=== PATIENT | male | born 1945 | race Caucasian/White ===

== ENCOUNTER → 2017-04-25 | Outpatient (CLI) | payer MEDICARE, BC ==
--- NOTE | 2017-04-25 18:50 | PCVCIMAG ---
APPROVED REPORT Study performed: 04/25/2017 13:51:42 EXAM: Comprehensive 2D, Doppler, and color-flow Echocardiogram Status: routine Other Information Study Quality: Adequate Indications Dyspnea CAD Cardiomyopathy 2D Dimensions LVEF(%): 64.60 (>50%) IVSd: 15.72 (7-11mm) LVDd: 46.74 mm PWd: 13.65 (7-11mm) LVDs: 30.27 (25-40mm) Left Atrium: 43.15 (27-40mm) Aortic Root: 32.32 mm LV Single Plane 4CH: 55.81 % LV Single Plane 2CH: 61.02 %Sewell's LVEF: 58.42 % Biplane EF: 57.9 % Volumes Left Atrial Volume (Systole) Single Plane 4CH: 56.56 mLSingle Plane 2CH: 57.70 mL LA ESV Index: 29.00 mL/m2 Aortic Valve AoV Peak Cj.: 1.47 m/s AO Peak Gr.: 8.63 mmHgLVOT Max P.14 mmHg LVOT Max V: 1.13 m/s Mitral Valve E/A Ratio: 1.1 MV Decel. Time: 300.67 ms MV E Max Cj.: 0.61 m/s MV A Cj.: 0.54 m/s IVRT: 107.27 ms TDI E/Lateral E': 10.30E/Medial E': 11.30 Pulmonary Valve PV Peak Cj.: 1.00 m/sPV Peak Gr.: 4.03 mmHg Pulmonary Vein P Vein S: 0.32 m/sP Vein A: 0.30 m/s P Vein D: 0.41 m/sP Vein A Dur.: 107.3 msec P Vein S/D Ratio: 0.78 Tricuspid Valve TR Peak Cj.: 2.60 m/s TR Peak Gr.: 27.02 mmHg Left Ventricle The left ventricle is normal size. There is normal LV segmental wall motion. Moderate concentric left ventricular hypertrophy. Left ventricular systolic function is normal. LVEF is 55%. Grade I - abnormal relaxation pattern. Right Ventricle The right ventricle is normal size. The right ventricular systolic function is normal. Atria Left atrium is mildly dilated. Right atrium is mildly dilated. Aortic Valve The aortic valve is normal in structure. No aortic regurgitation is present. There is no aortic valvular stenosis. Mitral Valve The mitral valve is normal in structure. There is no mitral valve regurgitation noted. No evidence of mitral valve stenosis. Tricuspid Valve The tricuspid valve is normal in structure. Mild tricuspid regurgitation with PAP of 34 mmHg. Pulmonic Valve The pulmonary valve is normal in structure. There is mild-moderate pulmonic valvular regurgitation. Great Vessels The aortic root is normal in size. IVC is normal in size and collapses with >50% inspiration Pericardium There is no pericardial effusion. <Conclusion> The left ventricle is normal size. Moderate concentric left ventricular hypertrophy. LVEF is 55%. The right ventricle is normal size. Left atrium is mildly dilated. The aortic valve is normal in structure. The mitral valve is normal in structure. There is no mitral valve regurgitation noted. There is no pericardial effusion. There is no pericardial effusion.
== END | disposition home or self-care (01) ==
LOC: PCVCIMAG 13:58
PROVIDERS: ATTEND Internal Medicine Cardiovascular Disease
DX: I07.1 Rheumatic tricuspid insufficiency (principal); I37.1 Nonrheumatic pulmonary valve insufficiency; I25.119 Atherosclerotic heart disease of native coronary artery with unspecified angina pectoris; I25.5 Ischemic cardiomyopathy; E78.5 Hyperlipidemia, unspecified; I45.10 Unspecified right bundle-branch block; K21.9 Gastro-esophageal reflux disease without esophagitis; R60.9 Edema, unspecified; I10 Essential (primary) hypertension; Z95.1 Presence of aortocoronary bypass graft; Z79.82 Long term (current) use of aspirin; Z79.84 Long term (current) use of oral hypoglycemic drugs; Z79.899 Other long term (current) drug therapy; Z87.891 Personal history of nicotine dependence; Z88.1 Allergy status to other antibiotic agents; Z88.8 Allergy status to other drugs, medicaments and biological substances
CPT/HCPCS: 80061; 93005; 93306; G0463

== ENCOUNTER → 2017-07-05 | Outpatient (CLI) | payer MEDICARE, BC | END | disposition home or self-care (01) | LOC: PCVCCLINIC 14:31 | PROVIDERS: ATTEND Internal Medicine Cardiovascular Disease | DX: I25.10 Atherosclerotic heart disease of native coronary artery without angina pectoris (principal); I45.10 Unspecified right bundle-branch block; I10 Essential (primary) hypertension; E78.5 Hyperlipidemia, unspecified; Z95.1 Presence of aortocoronary bypass graft; Z79.82 Long term (current) use of aspirin; Z87.891 Personal history of nicotine dependence; Z79.84 Long term (current) use of oral hypoglycemic drugs | CPT/HCPCS: 93005; G0463 ==

== ENCOUNTER → 2017-08-06 | Outpatient (CLI) | payer MEDICARE, BC ==
[~2017-08-06] MED LIST: REGADENOSON 0.4 MG/5 ML DISP.SYRIN. IV ONE
--- NOTE | 2017-08-07 16:58 | PCVCIMAG ---
APPROVED REPORT Exam: Nuclear Stress Test Indication: CAD , Chest pain, Dyspnea, Near Syncope Patient Location: Out-Patient Stress Nurse: Zahra Thornton RN, Vernell Pierre RN [place] Tech:Bee SuttonKIMBERLEE goff Ht: 5 ft 9 in Wt: 195 lbs BSA: 2.04 m2 HR: 62 bpm BP: 108/55 mmHg BMI: 28.7 Rhythm: NSR, RBBB Medical History Medical History: HTN, Hyperlipidemia, Age, Former Smoker, Age Medications: ASA, Atorvastatin, Clopidogrel, Furosemide, Lisinopril, Metformin, Omeprazole, Ranexa, NTG Allergies: Tetracycline Previous Cardiac Procedures: PCI, CABG Pretest Chest Pain Characteristics: No chest pain Exercise History: Physically active [place] EXAM: Myocardial Perfusion REST/STRESS Imaging Protocol: Rest Tc-99m/Stress Tc-99m 1 day Resting Data Rest SPECT myocardial perfusion imaging was performed in supine position 45 minutes following the intravenous injection of 10.5 mCi of Tc-99m Sestamibi. Time of rest injection: 09 Date: 08/06/2017 Administration Route: IV Administration Site: Right Arm Pharmacologic Stress Pharmacologic stress test was performed by injecting Regadenoson 0.4 mg IV push followed by the intravenous injection of 31.1 mCi of Tc-99m Sestamibi. Time of stress injection: 1045 Date: 08/06/2017 Administration Route: IV Administration Site: Right Arm Gated Stress SPECT was performed 45 minutes after stress injection. The images were gated to evaluate regional wall motion and calculate left ventricular ejection fraction. Study Quality Study: Good Study Data Post stress, the left ventricular ejection was 61%.. SSS: 3 SRS: 0 SDS: 2 Perfusion No evidence of stress induced ischemia or prior myocardial infarction. Wall Motion Normal left ventricular size and function with no regional wall motion abnormalities. Nuclear Conclusion No evidence of stress induced ischemia or prior myocardial infarction. Normal left ventricular size and function with no regional wall motion abnormalities. Post stress, the left ventricular ejection was 61%.. Interpreted by: Brian Parish MD Electronically Approved: 08/07/2017 12:50:19 Stress Test Details Stress Test: Pharmacologic stress was paired with low level exercise. Reason for pharmacologic stress test: physical limitation. HR Resting HR: 62 bpmMax Heart Rate (APMHR): 148 bpm Max HR Achieved: 108 bpmTarget HR (85% APMHR): 125 bpm % of APMHR: 72 Recovery HR: 72 bpm BP Resting BP: 108/55 mmHg Max BP: 100/50 mmHg ECG Resting ECG: Sinus Rhythm, RBBB, Twave abnormality Stress ECG: Sinus Rhythm, RBBB Maximum ST Deviation: 1.0 mm Arrhythmia: None Recovery ECG: Sinus Rhythm, RBBB Clinical Reason for Termination: Dizziness, Dyspnea Stress Symptoms: Dyspnea, Light-headed, Weak, Dizzy Exercise duration: 3 min 27 sec Exercise capacity: 1.6 METs Stopped protocol early, patient reported symptoms of near syncope- correlating with low BP post Lexiscan administration. Symptoms resolved during recovery with caffeine. Stress ECG Conclusion ECG: Non-ischemic <Conclusion> ECG: Non-ischemic
== END | disposition home or self-care (01) ==
LOC: PCVCIMAG 08:53
PROVIDERS: ATTEND Internal Medicine Cardiovascular Disease
DX: I45.10 Unspecified right bundle-branch block (principal); I25.10 Atherosclerotic heart disease of native coronary artery without angina pectoris; I10 Essential (primary) hypertension; E78.5 Hyperlipidemia, unspecified; K52.9 Noninfective gastroenteritis and colitis, unspecified; Z87.891 Personal history of nicotine dependence; Z95.1 Presence of aortocoronary bypass graft
CPT/HCPCS: 78452; 93017; A9500; J2785

== ENCOUNTER → 2017-08-14 | Outpatient (CLI) | payer MEDICARE, BC ==
[~2017-08-14] MED LIST changes: +DIAZEPAM 10 MG TABLET. ONE; +IOHEXOL 350 MG/ML 100 ML VIAL. ONE; +IOHEXOL 350 MG/ML 50 ML VIAL. ONE; +IV NORMAL SALINE 500ML BAG 0 ML ONE; +IV NORMAL SALINE 500ML BAG 500 ML ONE; +LIDOCAINE 1% Multi-Dose 20 ML VIAL. ONE; +MIDAZOLAM HCL/PF 2 MG/2 ML VIAL. ONE; -REGADENOSON 0.4 MG/5 ML DISP.SYRIN. IV ONE; +fentaNYL PF VIAL 100 MCG/2 ML VIAL ONE
--- NOTE | 2017-08-14 23:20 | PCVCINTER ---
APPROVED REPORT Patient Details Patient Status: Out-Patient Room #: 2 The patient is a 71 year-old Male Event Personnel Raymond Sanchez RT(R), Linda Forbes RN, Renetta Lui RT(R), Floyd Duarte MD Risk Factors Arterial HypertensionDysplipidemia (Type: 1), Hypercholesterolemia, Diabetes (Control: Oral)Last Creatanine 0.9Tobacco History (Former) Previous Procedures/Diagnoses Previous CABGPrevious PCI, Previous Femoral Procedure, Previous Vascular Surgery Procedure Narrative The patient was brought electively to the Cardiac Catheterization Laboratory and was prepped and draped in a sterile manner. The right femoral was infiltrated with 1% Lidocaine subcutaneous anesthesia. A 6f sheath was inserted into the right femoral artery. Coronary angiography was performed using coronary diagnostic catheters. The right coronary system was accessed and visualized with a Diagnostic JR4 catheter. The left coronary system was accessed and visualized with a Diagnostic JL4 catheter. The left ventricle was accessed and visualized with a Diagnostic Pigtail catheter. Left ventriculogram was performed in ASTORGA projection. An aortogram of the abdominal aorta was performed. The patient tolerated the procedure well and there were no complications associated with the procedure. There was no hematoma. Hemodynamics The aortic pressure is 107/40 mmHg with a mean of 60 mmHg. The left ventricular pressure is 127/-1 mmHg with a mean of 13 mmHg. Conclusion #1 normal left ventricular size with subtle inferior wall hypokinesis EF 50-55% #2 abdominal aorta is intact mild irregularities small distal aortic aneurysm renal arteries and iliac system widely patent #3 mildly diseased left main giving rise to circumflex and LAD #4 LAD proximally occludes this filling of a moderate diagonal system #5 circumflex OM mild nondominant vessel. A middle OM branch may be occluded. These are small in caliber and mildly to moderately diffusely diseased #6 KIMBALL to diagonal LAD is well preserved some competitive filling of the diagonal system the LAD is a diffusely diseased vessel is extends to the apex somewhat atraumatic but patent #7 large dominant right coronary artery with 3040% proximal and mild diffuse disease this PDA extends around the inferior apex. #8 possible SVG occlusion which may have been patent to an OM branch this is not found Recommendations and plan or continue aggressive risk factor modification no indication for intervention. No lifting for 48 hours no line tub Jacuzzi or Pearl for a week.
== END | disposition home or self-care (01) ==
LOC: PCVCINTER 06:58
PROVIDERS: ATTEND Internal Medicine Cardiovascular Disease
DX: I25.10 Atherosclerotic heart disease of native coronary artery without angina pectoris (principal); E78.00 Pure hypercholesterolemia, unspecified; E78.5 Hyperlipidemia, unspecified; E11.9 Type 2 diabetes mellitus without complications; Z95.1 Presence of aortocoronary bypass graft
CPT/HCPCS: 75625; 93459; 99152; C1751; C1760; C1769; C1894; J1644; J2250; J3010; J7040; Q9967; 93458

== ENCOUNTER → 2018-02-05 | Outpatient (CLI) | payer MEDICARE, BC | END | disposition home or self-care (01) | LOC: PCVCCLINIC 14:18 | DX: I25.10 Atherosclerotic heart disease of native coronary artery without angina pectoris (principal); I10 Essential (primary) hypertension; R06.02 Shortness of breath; E11.9 Type 2 diabetes mellitus without complications; R94.31 Abnormal electrocardiogram [ECG] [EKG]; Z95.1 Presence of aortocoronary bypass graft; Z87.891 Personal history of nicotine dependence; Z79.899 Other long term (current) drug therapy; Z79.82 Long term (current) use of aspirin | CPT/HCPCS: 93005; G0463 ==

== ENCOUNTER → 2018-10-08 | Outpatient (CLI) | payer MEDICARE, BC | END | disposition home or self-care (01) | LOC: PCVCCLINIC 15:01 | PROVIDERS: ATTEND Internal Medicine Cardiovascular Disease | DX: I25.810 Atherosclerosis of coronary artery bypass graft(s) without angina pectoris (principal); E11.9 Type 2 diabetes mellitus without complications; R94.31 Abnormal electrocardiogram [ECG] [EKG]; I10 Essential (primary) hypertension; K21.9 Gastro-esophageal reflux disease without esophagitis; R06.02 Shortness of breath; I25.5 Ischemic cardiomyopathy; E78.00 Pure hypercholesterolemia, unspecified; Z88.8 Allergy status to other drugs, medicaments and biological substances; Z79.899 Other long term (current) drug therapy; Z95.1 Presence of aortocoronary bypass graft; Z72.89 Other problems related to lifestyle | CPT/HCPCS: 80061; 93005; G0463 ==

== ENCOUNTER → 2019-04-16 | Outpatient (CLI) | payer MEDICARE, BC | END | disposition home or self-care (01) | LOC: PCVCCLINIC 15:00 | PROVIDERS: ATTEND Internal Medicine Cardiovascular Disease | DX: I25.10 Atherosclerotic heart disease of native coronary artery without angina pectoris (principal); I10 Essential (primary) hypertension; E78.00 Pure hypercholesterolemia, unspecified; E11.9 Type 2 diabetes mellitus without complications; Z88.8 Allergy status to other drugs, medicaments and biological substances; Z87.891 Personal history of nicotine dependence; Z72.89 Other problems related to lifestyle; Z79.82 Long term (current) use of aspirin; Z79.899 Other long term (current) drug therapy | CPT/HCPCS: 36415; 80061; 93005; G0463 ==

== ENCOUNTER → 2019-09-12 | Outpatient (CLI) | payer MEDICARE, BC ==
[~2019-09-12] MED LIST changes: -DIAZEPAM 10 MG TABLET. ONE; -IOHEXOL 350 MG/ML 100 ML VIAL. ONE; -IOHEXOL 350 MG/ML 50 ML VIAL. ONE; -IV NORMAL SALINE 500ML BAG 0 ML ONE; -IV NORMAL SALINE 500ML BAG 500 ML ONE; -LIDOCAINE 1% Multi-Dose 20 ML VIAL. ONE; -MIDAZOLAM HCL/PF 2 MG/2 ML VIAL. ONE; +REGADENOSON 0.4 MG/5 ML DISP.SYRIN. IV ONE; -fentaNYL PF VIAL 100 MCG/2 ML VIAL ONE
--- NOTE | 2019-09-12 15:42 | PCVCIMAG ---
APPROVED REPORT Study performed: 09/12/2019 11:33:36 EXAM: Comprehensive 2D, Doppler, and color-flow Echocardiogram Patient Location: Echo lab Room #: 2Status: routine BSA: 2.02 HR: 51 bpmBP: 116/64 mmHg Rhythm: Bradycardia Other Information Study Quality: Adequate Risk Factors: Cardiac Risk Factors: HTN, Hyperlipidemia, DM Indications CAD 2D Dimensions IVSd: 13.36 (7-11mm)LVOT Diam: 23.00 (18-24mm) LVDd: 51.38 mm PWd: 14.58 (7-11mm)Ascending Ao: 32.48 (22-36mm) LVDs: 35.24 (25-40mm) Left Atrium: 40.62 (27-40mm) Aortic Root: 32.43 mm LV Single Plane 4CH: 71.80 % LV Single Plane 2CH: 70.19 % Biplane EF: 69.5 % Volumes Left Atrial Volume (Systole) Single Plane 4CH: 49.21 mLSingle Plane 2CH: 39.26 mL LA ESV Index: 25.00 mL/m2 Aortic Valve AoV Peak Cj.: 1.31 m/s AO Peak Gr.: 6.91 mmHgLVOT Max P.72 mmHg LVOT Max V: 1.09 m/s [place]AS[place]Y Vmax: 3.38 cm2 Mitral Valve E/A Ratio: 1.3 MV Decel. Time: 281.57 ms MV E Max Cj.: 0.89 m/s MV A Cj.: 0.67 m/s IVRT: 86.51 ms TDI E/Lateral E': 11.13E/Medial E': 14.83 Medial E' Cj.: 0.06 m/s Lateral E' Cj.: 0.08 m/s Pulmonary Valve PV Peak Cj.: 1.13 m/sPV Peak Gr.: 5.13 mmHg UT End Vmax: 0.99 m/s Pulmonary Vein P Vein S: 0.52 m/sP Vein A: 0.31 m/s P Vein D: 0.59 m/sP Vein A Dur.: 134.9 msec P Vein S/D Ratio: 0.88 Tricuspid Valve TR Peak Cj.: 2.62 m/sRAP Estimate: 7.00 mmHg TR Peak Gr.: 27.43 mmHg PA Pressure: 34.00 mmHg Left Ventricle The left ventricle is normal size. There is normal LV segmental wall motion. Mild to moderate concentric left ventricular hypertrophy. Left ventricular systolic function is normal. The left ventricular ejection fraction is within the normal range. LVEF is 65-70%. The left ventricular diastolic function is normal. Right Ventricle The right ventricle is normal size. The right ventricular systolic function is normal. Atria The left atrium size is normal. The right atrium size is normal. Aortic Valve The aortic valve is normal in structure. No aortic regurgitation is present. There is no aortic valvular stenosis. Mitral Valve The mitral valve is normal in structure. Mild mitral regurgitation. No evidence of mitral valve stenosis. Tricuspid Valve The tricuspid valve is normal in structure. Trace tricuspid regurgitation. Pulmonary artery pressure is 34 mmHg. Pulmonic Valve The pulmonary valve is normal in structure. Mild pulmonic regurgitation. Great Vessels The aortic root is normal in size. The ascending aorta is normal in size. IVC is normal in size and collapses >50% with inspiration. Pericardium There is no pericardial effusion. <Conclusion> The left ventricle is normal size. LVEF is 65-70%. The left ventricular diastolic function is normal. The right ventricle is normal size. The left atrium size is normal. The aortic valve is normal in structure. Mild mitral regurgitation. Trace tricuspid regurgitation. Pulmonary artery pressure is 34 mmHg. The aortic root is normal in size. There is no pericardial effusion.
--- NOTE | 2019-09-15 15:13 | PCVCIMAG ---
APPROVED REPORT Imaging Protocol: Rest Tc-99m/Stress Tc-99m 1 day Study performed: 09/12/2019 12:30:09 Indication: CAD, ICM Patient Location: Out-Patient Stress Nurse: Vernell Pierre RN [place] Tech:Andrade Dennison NMLISAB Ht: 5 ft 9 in Wt: 197 lbs BSA: 2.05 m2 HR: 47 bpm BP: 145/67 mmHg BMI: 29.0 Rhythm: Sinus Rhythm, RBBB, T Wave Abnormality Medical History Medical History: Age, Hyperlipidemia, HTN, CAD, DM, Former Smoker Medications: ASA, Plavix, Lasix, Imdur, Lisinopril, NTG, Crestor, Excedrin Allergies: Tetracycline, Tetracaine Previous Cardiac Procedures: CABG, PCI Pretest Chest Pain Characteristics: No chest pain Meds Held (24 hrs): Imdur, Excedrin Resting Data Rest SPECT myocardial perfusion imaging was performed in supine position 45 minutes following the intravenous injection of 11.4 mCi of Tc-99m Sestamibi. Time of rest injection: 1215 Date: 09/12/2019 Administration Route: IV Administration Site: Right AC Pharmacologic Stress Pharmacologic stress test was performed by injecting Regadenoson 0.4 mg IV push over 10-15 seconds immediately followed by the intravenous injection of 34.1 mCi of Tc-99m Sestamibi. Time of stress injection: 1320 Date: 09/12/2019 Administration Route: IV Administration Site: Right AC Gated Stress SPECT was performed 45 minutes after stress injection. The images were gated to evaluate regional wall motion and calculate left ventricular ejection fraction. Stress Test Details Stress Test: Pharmacologic stress testing performed using 0.4 mg of regadenoson per 5 mL given IV over 10 seconds. Reason for pharmacologic stress test: Back and Hip Pain. HRMax Heart Rate (APMHR): 145 bpm Resting HR: 47 bpmTarget HR (85% APMHR): 123 bpm Max HR Achieved: 85 bpm % of APMHR: 58 Recovery HR: 61 bpm BP Resting BP: 145/67 mmHg Max BP: 136/62 mmHg Recovery BP: 140/65 mmHg ECG Resting ECG: Sinus Rhythm, RBBB, T Wave Abnormality Stress ECG: Sinus Rhythm, RBBB, T Wave Abnormality Arrhythmia: None Recovery ECG: Sinus Rhythm, RBBB, T Wave Abnormality Clinical Reason for Termination: Completed protocol Stress Symptoms: Abdominal Discomfort, Dyspnea Exercise duration: min 55 sec Symptoms resolved with caffeine. Stress ECG Conclusion ECG: Non-ischemic Study Quality Study: Good Study Data Post stress, the left ventricular ejection was 63%.. SSS: 2 SRS: 5 SDS: 1 TID = 1.29. Perfusion No evidence of stress induced ischemia or prior myocardial infarction. Wall Motion Normal left ventricular size and function with no regional wall motion abnormalities. No significant post stress ventricular dilatation. Nuclear Conclusion No evidence of stress induced ischemia or prior myocardial infarction. Normal left ventricular size and function with no regional wall motion abnormalities. Post stress, the left ventricular ejection was 63%. No change since prior study dated August 2017. Interpreted by: Brian Parish MD Electronically Approved: 09/12/2019 20:12:14 <Conclusion> ECG: Non-ischemic
== END | disposition home or self-care (01) ==
LOC: PCVCIMAG 11:25
PROVIDERS: ATTEND Internal Medicine Cardiovascular Disease
DX: I08.8 Other rheumatic multiple valve diseases (principal); I25.10 Atherosclerotic heart disease of native coronary artery without angina pectoris; I10 Essential (primary) hypertension; R94.31 Abnormal electrocardiogram [ECG] [EKG]; E11.9 Type 2 diabetes mellitus without complications; I49.5 Sick sinus syndrome; I25.5 Ischemic cardiomyopathy; E78.00 Pure hypercholesterolemia, unspecified; Z87.891 Personal history of nicotine dependence
CPT/HCPCS: 78452; 93017; 93306; A9500; J2785